=== PATIENT | male | born 1975 | race Caucasian/White ===

== ENCOUNTER 2021-11-22 08:39 | Day surgery (SDC) | payer OTHER ==
[2021-11-20 16:04] VITALS: BMI 23.0
[~2021-11-22 08:39] MED LIST: LACTATED RINGERS 1,000 ML IV SCH
[2021-11-22 09:11] VITALS: RESP 16; TEMP 98.1
[2021-11-22] MEDS ORDERED: PROPOFOL 10 MG/ML 20 ML VIAL IV ONE (09:28)
--- NOTE | 2021-11-22 09:38 | P.GSHP ---
History of Present Illness H&P Date: 11/22/21 Chief Complaint: Esophagitis, abdominal pain This is a 46-year-old male presents today for colonoscopy. Patient is at issues with crampy abdominal pain and change in bowel some diarrhea. Patient has a strong family history of inflamed. Bowel disease with his brother having ulcerative colitis. Past Medical History Past Medical History: Osteoarthritis (OA) Additional Past Medical History / Comment(s): hx migraines, abdominal pain and cramping, History of Any Multi-Drug Resistant Organisms: None Reported Additional Past Surgical History / Comment(s): oral surgery, Past Anesthesia/Blood Transfusion Reactions: No Reported Reaction Smoking Status: Current every day smoker - Past Family History Mother Family Medical History: No Reported History Medications and Allergies Home Medications Medication Instructions Recorded Confirmed Type Naproxen Sodium 220 mg PO DIRECTED PRN 11/20/21 11/22/21 History Zyrtec(Dose Unknown) 1 tab PO DIRECTED PRN 11/20/21 11/22/21 History Allergies Allergy/AdvReac Type Severity Reaction Status Date / Time cat dander Allergy Unknown Verified 11/22/21 08:59 celery Allergy Unknown Verified 11/22/21 08:59 shrimp Allergy Unknown Verified 11/22/21 08:59 wheat Allergy Unknown Verified 11/22/21 08:59 Surgical - Exam Vital Signs Temp Pulse Resp BP Pulse Ox 98.1 F 69 16 125/58 98 11/22/21 09:04 11/22/21 09:04 11/22/21 09:04 11/22/21 09:04 11/22/21 09:04 - General well developed, well nourished, no distress - Eyes PERRL - ENT normal pinna - Neck no masses - Respiratory normal expansion - Cardiovascular Rhythm: regular - Abdomen Abdomen: soft, non tender Assessment and Plan Assessment: Abdominal pain, diarrhea possible colitis. We'll perform colonoscopy.
--- NOTE | 2021-11-22 09:54 | P.OP ---
Date of Procedure: 11/22/21 Preoperative Diagnosis: Abdominal pain Diarrhea Postoperative Diagnosis: Left colon polyp Random rectal biopsy pathology pending Procedure(s) Performed: Colonoscopy Anesthesia: MAC Surgeon: Lake Gonsales Pathology: other (Left colon polyp, rectal biopsy) Condition: stable Disposition: PACU Description of Procedure: The patient's placed on the endoscopy table in the lateral position. He received IV sedation. Digital rectal exam was performed. This revealed no abnormalities. Flexible colonoscope was then placed patient anus and passed throughout the entire colon. The ileocecal valve was visualized. The cecum, ascending and transverse colon appeared normal. In the descending colon there was a small sessile polyp. This removed with the cold forcep. Scope withdrawn remainder the descending and sigmoid colon appeared normal. The rectum appeared normal. But due to the patient's symptoms of diarrhea a random rectal biopsies performed. Scope withdrawn for patient.
[2021-11-22 10:15] VITALS: BP 107/69; PULSE 53
== END 2021-11-22 10:48 | disposition home or self-care (01) ==
LOC: ORWHC2ENDO 08:39
PROVIDERS: ATTEND Surgery
DX: K63.5 Polyp of colon (principal); R19.7 Diarrhea, unspecified; R10.9 Unspecified abdominal pain; Z83.79 Family history of other diseases of the digestive system; G43.909 Migraine, unspecified, not intractable, without status migrainosus; F17.200 Nicotine dependence, unspecified, uncomplicated; F41.9 Anxiety disorder, unspecified; F32.A Depression, unspecified; Z98.890 Other specified postprocedural states; Z88.8 Allergy status to other drugs, medicaments and biological substances; Z91.018 Allergy to other foods; Z91.013 Allergy to seafood
CPT/HCPCS: 88305; 45380; J2704

== ENCOUNTER → 2022-03-08 | Outpatient (CLI) | payer OTHER ==
--- NOTE | 2022-03-08 09:56 | US ---
EXAMINATION TYPE: US abdomen complete DATE OF EXAM: 03/08/2022 COMPARISON: NONE CLINICAL HISTORY: R10.84 ABDOMEN PAIN. generalized abdominal pain x years TECHNIQUE: Multiple sonographic images of the abdomen are obtained. FINDINGS: EXAM MEASUREMENTS: Liver Length: 17.9 cm Gallbladder Wall: 0.18 cm CBD: 0.26 cm Spleen: 8.6 cm Right Kidney: 13.6 x 5.7 x 4.5 cm Left Kidney: 11.5 x 5.6 x 6.5 cm MANAGER FASHION NOTES: Pancreas: wnl Liver: wnl Gallbladder: wnl Evidence for sonographic Nicole's sign: No CBD: wnl Spleen: Not well visualized due to bowel gas Right Kidney: wnl Left Kidney: wnl Upper IVC: wnl Abd Aorta: wnl IMPRESSION: 1. Abdomen ultrasound unremarkable as visualized.
== END | disposition home or self-care (01) ==
LOC: RADUSWWP 08:58
PROVIDERS: ATTEND Internal Medicine
DX: R10.84 Generalized abdominal pain (principal)
CPT/HCPCS: 76700

== ENCOUNTER 2022-10-21 11:56 | Day surgery (SDC) | payer OTHER ==
[2022-10-15 10:58] VITALS: BMI 23.0
[~2022-10-21 11:56] MED LIST changes: +LIDOCAINE 1% (10MG/ML) FOR IV START INTRADERMA PRN
[2022-10-21] MEDS ORDERED: LACTATED RINGERS 1,000 ML IV ONE (12:22)
[2022-10-21 12:24] VITALS: RESP 16; TEMP 98.4
[2022-10-21] MEDS ORDERED: LIDOCAINE 2% INJ 20 MG/ML (2 ML VIAL) ONE (13:13)
[2022-10-21] MEDS ORDERED: PROPOFOL 10 MG/ML 20 ML VIAL IV ONE (13:13)
--- NOTE | 2022-10-21 13:25 | P.OP ---
Date of Procedure: 10/21/22 Preoperative Diagnosis: Gastritis Postoperative Diagnosis: Mild antral gastritis Procedure(s) Performed: EGD Anesthesia: MAC Surgeon: Lake Gonsales Pathology: other (Antrum, esophagus) Condition: stable Disposition: PACU Description of Procedure: The patient's placed on the endoscopy table in the lateral position. He received IV sedation. The gastroscope placed oropharynx passed in the esophagus and the stomach. Scope was then placed through the pylorus. The first and second portion of the duodenum appeared normal. Scope was then brought back the antrum this. Mildly inflamed. A biopsies performed. The scope was then retroflexed and the remainder the stomach appeared normal. The GE junction was at 40 cmms. The distal esophagus appeared normal. The proximal esophagus normal. A random esophageal biopsy was performed. Scope was withdrawn for patient.
[2022-10-21 13:56] VITALS: BP 126/85; PULSE 60
== END 2022-10-21 14:22 | disposition home or self-care (01) ==
LOC: ORWHC2ENDO 11:56
PROVIDERS: ATTEND Surgery
DX: K29.50 Unspecified chronic gastritis without bleeding (principal); K20.90 Esophagitis, unspecified without bleeding; M19.90 Unspecified osteoarthritis, unspecified site; K82.8 Other specified diseases of gallbladder; F12.90 Cannabis use, unspecified, uncomplicated; Z98.890 Other specified postprocedural states; Z87.891 Personal history of nicotine dependence; Z79.899 Other long term (current) drug therapy
CPT/HCPCS: 43239; J2704; J2001; 88305

== ENCOUNTER → 2024-12-17 | Outpatient (CLI) | payer SELFPAY ==
--- NOTE | 2024-12-17 09:54 | XR ---
EXAMINATION TYPE: XR lumbosacral spine min 4V DATE OF EXAM: 12/17/2024 CLINICAL INDICATION: Male, 49 years old with history of M54.42 Bilat low back pain, pain TECHNIQUE: Frontal, lateral, and oblique images of the lumbar spine are obtained. COMPARISON: None FINDINGS: There are 5 lumbar type vertebral bodies identified. The lumbar spine shows dextroconvex scoliosis centered at L3 level without evidence of acute fracture or dislocation. Vertebral body heig hts are within normal limits. Kngh-yz-biakwyer disc space narrowing and anterior spurring at L3-L4 an d L4-L5 levels is present. The oblique images appear within normal limits. The overlying soft tissu e appears unremarkable. IMPRESSION: As above. [facility], , 12/17/2024 9:52 AM
--- NOTE | 2024-12-17 09:56 | XR ---
EXAMINATION TYPE: XR abdomen 1V DATE OF EXAM: 12/17/2024 9:31 AM CLINICAL INDICATION: Male, 49 years old with history of R10.84 Abd pain TECHNIQUE: 2 supine views of the abdomen. COMPARISON: None. FINDINGS: Gas is seen in nondistended stomach. Scattered gas is seen in non-distended small bowel loo ps. Gas and fecal material is seen in non-distended colon. No abnormal calcifications. There is disc space narrowing and spurring left L3-L4 and right L4-L5 levels. Lung bases are clear. Hepatomegaly is suspected. IMPRESSION: Overall nonobstructive bowel gas pattern. [facility], , 12/17/2024 9:54 AM
--- NOTE | 2024-12-17 09:58 | XR ---
EXAMINATION TYPE: XR soft tissue neck DATE OF EXAM: 12/17/2024 COMPARISON: NONE CLINICAL INDICATION: Male, 49 years old with history of M54.2 neck pain left side; TECHNIQUE: 2 views soft tissue neck. FINDINGS: No suspicious prevertebral soft tissue swelling. No suspicious narrowing of the subglottic airway on the frontal view. Region of epiglottis and vallecula appears within normal limits. There is straightening of the cervical spine. There is mild to moderate disc space narrowing and anterior spu rring at C5-C6 level. Overlying soft tissue is unremarkable. IMPRESSION: No suspicious findings seen to account for patient's symptoms of left-sided neck pain. [facility], , 12/17/2024 9:55 AM
== END | disposition home or self-care (01) ==
LOC: RADXRMAIN 08:41
PROVIDERS: ATTEND Internal Medicine
DX: R10.84 Generalized abdominal pain (principal); M51.26 Other intervertebral disc displacement, lumbar region; M54.2 Cervicalgia
CPT/HCPCS: 70360; 72110; 74018

== ENCOUNTER → 2024-12-17 | Outpatient (CLI) | payer SELFPAY ==
[2024-12-17 15:57] LABS: Basophils # (A) 0.06 X 10*3/uL (0.00-0.10); Basophils % (A) 0.7 %; Eosinophils # (A) 0.16 X 10*3/uL (0.04-0.35); HCT 46.7 % (39.6-50.0); HGB 15.3 g/dL (13.0-17.0); Lymphocytes # (A) 1.93 X 10*3/uL (0.90-5.00); Lymphocytes % (A) 23.7 %; MCH 32.1 pg (27.0-32.0); MCHC 32.8 g/dL (32.0-37.0); MCV 97.9 FL (80.0-97.0); Mean Platelet Volume 9.7 FL (9.5-12.2); Monocytes # (A) 0.68 X 10*3/uL (0.20-1.00); Monocytes % (A) 8.4 %; NRBC Per 100 WBC 0 X 10*3/uL (0.00-0.01); Neutrophils # (A) 5.29 X 10*3/uL (1.80-7.70); Platelet Count 292 X 10*3/uL (140-440); RBC 4.77 X 10*6/uL (4.40-5.60); RDW 13.4 % (11.5-14.5); WBC 8.14 X 10*3/uL (4.50-10.00)
[2024-12-17 16:59] LABS: Hepatitis C IgG Antibody Nonreactive (Nonreactive)
[2024-12-17 17:13] LABS: % Iron Saturation 35.45 (15.00-50.00); ALT 22 U/L (10-49); AST 22 U/L (14-35); Albumin 4.5 g/dL (3.8-4.9); Albumin/Globulin Ratio 1.96 Ratio (1.60-3.17); Alkaline Phosphatase 70 U/L (41-126); Blood Urea Nitrogen 13.2 mg/dL (9.0-27.0); Calcium 9.7 mg/dL (8.7-10.3); Carbon Dioxide 26.2 mmol/L (21.6-31.8); Chloride 104 mmol/L (96-109); Globulin 2.3 g/dL (1.6-3.3); Glucose 114 mg/dL (70-110); Iron 117 UG/DL (65-175); LDL Cholesterol,Calculated 115.4 mg/dL (0.0-131.0); Magnesium 2.1 mg/dL (1.5-2.4); Potassium 4.7 mmol/L (3.5-5.5); Sodium 140 mmol/L (135-145); Total Bilirubin 0.4 mg/dL (0.3-1.2); Total Iron Binding Capacity 330 UG/DL (228-460); Total Protein 6.8 g/dL (6.2-8.2)
== END | disposition home or self-care (01) ==
LOC: LABWHC1 07:50
PROVIDERS: ATTEND Family Medicine
DX: Z00.00 Encounter for general adult medical examination without abnormal findings (principal); R53.82 Chronic fatigue, unspecified; Z77.011 Contact with and (suspected) exposure to lead
CPT/HCPCS: 36415; 80053; 80061; 82306; 82607; 82728; 82746; 83540; 83550; 83735; 84443; 84466; 85025; 86803